=== PATIENT | female | born 1965 | race Caucasian/White ===

== ENCOUNTER 2022-05-20 14:28 | Outpatient (CLI) | payer BC, SELFPAY ==
--- NOTE | 2022-05-20 14:30 | CRLHL7_ITS ---
For Patients: As a result of the Cures Act, medical imaging exams and procedure reports are released immediately into your electronic medical record. You may view this report before your referring provider. If you have questions, please contact your health care provider. DXA BONE MINERAL DENSITY STUDY, 05/20/2022 Current height (inches): 65.0 Weight (lbs.): 155.0 Menopause age: 54 Ethnicity: White 1. Have you had a previous hip or vertebral fracture? No. 2. Have you had any fractures during your adult life which did not result from significant trauma (e.g., auto accident)? No. 3. Did either of your parents have a hip fracture? No. 4. Do you smoke? No. 5. Have you ever taken Glucocorticoids? No. 6. Do you have rheumatoid arthritis? No. 7. Do you have secondary osteoporosis? No. 8. Do you drink 3 or more alcoholic drinks per day? Yes. 9. Are you being treated for osteoporosis? No. 10. Have you ever taken any of the following medications: Actonel, Evista, Fosamax, Miacalcin, Reclast, Boniva, Forteo, HRT (i.e., estrogen/hormone therapy), Protelos, Prolia, Vitamin D, Calcium, other ??? please specify. ANSWER: Yes; vitamin D. 11. Do you have any of the following medical conditions: Anorexia or bulimia, asthma or emphysema, end stage renal disease, hyperparathyroidism, any seizure disorders, cancer, inflammatory bowel diseases, hysterectomy, other ??? please specify. ANSWER: No. 12. What was your maximum height (inches)? 65. 13. Do you perform weight bearing exercise regularly? Yes. 14. Do you regularly consume dairy products? Yes. 15. Do you drink caffeinated beverages? Yes. If female: 16. At what age did your period start? 12. 17. Are you premenopausal? No. 18. How many full-term pregnancies have you had? 2. 19. Have you ever missed your period for more than 6 months in a row (not including or menopause)? No. TECHNIQUE: Bone mineral density study was performed using the [employer]. FINDINGS: The results of the study expressed as bone mineral density (BMD) are as follows: Lumbar Spine L1 to L4: BMD: 0.898 g/cm2. T-score: -1.4. Z-score: -0.1. Neck Left: BMD: 0.771 g/cm2. T-score: -0.7. Z-score: 0.5. Right: BMD: 0.728 g/cm2. T-score: -1.1. Z-score: 0.1. Total Left: BMD: 0.882 g/cm2. T-score: -0.5. Z-score: 0.3. Right: BMD: 0.825 g/cm2. T-score: -1.0. Z-score: -0.2. IMPRESSION: Osteopenia. FRAX 10-year Fracture Risk Major Osteoporotic Fracture: 7.8 percent Hip Fracture: 0.6 percent Reported Risk Factors: [place] () Neck BMD = 0.728, BMI = 25.8, alcohol use TONY RIZZO M.D. Diagnostic Radiologist [email or web address] Transcribed: 4:[address]/Dictated by: Tony Rizzo MD @ 05/20/2022 3:05:00 PM (Electronically Signed)
--- NOTE | 2022-05-20 15:20 | CRLHL7_ITS ---
For Patients: As a result of the Century Cures Act, medical imaging exams and procedure reports are released immediately into your electronic medical record. You may view this report before your referring provider. If you have questions, please contact your health care provider. BILATERAL SCREENING MAMMOGRAM WITH COMPUTER-AIDED DETECTION AND TOMOSYNTHESIS TECHNIQUE: CC and MLO views were obtained. These mammographic images have been obtained using full-field digital technique. These mammographic images were interpreted with the benefit of computer-aided detection. Breast Tomosynthesis was used in this interpretation. COMPARISON FILM: 11/24/20, 02/19/19, 11/28/17 FINDINGS: The breasts are heterogeneously dense, which may obscure small masses IMPRESSION: There is no radiographic evidence for malignancy. ASSESSMENT: BI-RADS Category 2: Benign RECOMMENDATION: Routine screening mammogram in 1 year. A lay language report of this examination will be provided to the patient. Tony Reed M.D. Diagnostic Radiologist [email or web address] ARVIND/Dictated by: Tony Reed MD @ 05/21/2022 12:33:00 PM (Electronically Signed)
== END 2022-05-20 14:29 | disposition home or self-care (01) ==
LOC: RAD 14:31
PROVIDERS: PCP Family Medicine; Visit Provider Physician Assistant
DX: Z12.31 Encounter for screening mammogram for malignant neoplasm of breast (principal); R92.2 Inconclusive mammogram; M89.8X9 Other specified disorders of bone, unspecified site; M85.89 Other specified disorders of bone density and structure, multiple sites
CPT/HCPCS: 77063; 77067; 77080